=== PATIENT | male | born 2005 | race Caucasian/White ===

== ENCOUNTER 2025-01-05 22:36 | Inpatient (IN) | payer MEDICAID ==
[~2025-01-05] VITALS: Ht 170.2 cm; Wt 67.1 kg
[2025-01-05 22:43] VITALS: O2SAT 100
[2025-01-05 23:28] LABS: CLARITY URINE CLEAR (CLEAR); COLOR URINE YELLOW (YELLOW); GLUCOSE URINE NEGATIVE (NEGATIVE); KETONES URINE TRACE (NEGATIVE); LEUKOCYTE ESTERASE URINE NEGATIVE (NEGATIVE); NITRITE URINE NEGATIVE (NEGATIVE); OCCULT BLOOD URINE NEGATIVE (NEGATIVE); PH URINE 6.0 (4.5-8.0); PROTEIN URINE NEGATIVE (NEGATIVE); SPECIFIC GRAVITY URINE 1.026 (1.005-1.030); UROBILINOGEN URINE 1.0 E.U./dL (0.2-1.0)
[2025-01-05 23:38] LABS: HEMATOCRIT. 37.5 % (42.0-52.0); HEMOGLOBIN. 13.1 g/dL (14.0-18.0); MEAN PLATELET VOLUME 7.5 fl (7.4-10.4); PLATELET 381 x1000/uL (130-400); RED BLOOD CELL COUNT 4.26 mill/uL (4.7-6.1); RED CELL DISTRIBUTION WIDTH 13.6 % (11.6-14.6)
[2025-01-05 23:54] LABS: CREATININE 0.9 mg/dL (0.6-1.3); UREA NITROGEN BLOOD 20 mg/dL (9-23)
[2025-01-05 23:55] LABS: ETHANOL BLOOD < 10 mg/dL (<10)
[2025-01-05 23:56] LABS: ASPARTATE AMINOTRANSFERASE 107 IU/L (<34)
[2025-01-05 23:57] LABS: BILIRUBIN DIRECT 0.1 mg/dL (<=3.0); BILIRUBIN TOTAL 0.2 mg/dL (0.1-1.0); PROTEIN TOTAL 6.5 g/dL (6.0-8.3)
[2025-01-06] LABS: *AMPHETAMINES SCREEN URINE NEGATIVE (NEGATIVE)
[2025-01-06 00:01] LABS: *BARBITURATES SCREEN URINE NEGATIVE (NEGATIVE); *BENZODIAZEPINES SCREEN URINE NEGATIVE (NEGATIVE); *COCAINE SCREEN URINE NEGATIVE (NEGATIVE); CANNABINOID URINE SCREEN PRESUMPTIVE POSITIVE (NEGATIVE); ECSTASY MDMA SCREEN URINE NEGATIVE (NEGATIVE); METHADONE URINE SCREEN NEGATIVE (NEGATIVE); OPIATES URINE SCREEN NEGATIVE (NEGATIVE); PHENCYCLIDINE URINE SCREEN NEGATIVE (NEGATIVE)
[2025-01-06] MEDS: POTASSIUM CHLORIDE 20MEQ/PACKET PO NR ×2 (00:23→06:14)
[2025-01-06 01:36] LABS: ATYPICAL LYMPHOCYTES 1; BAND% 3.0 % (1.0-6.0); EOSINOPHILS % MANUAL 2.0 % (0.0-5.0); LYMPHOCYTES % MANUAL 49.0 % (20.0-50.0); METAMYELOCYTES % 1.0 % (0-0); MONOCYTES % MANUAL 9.0 % (2.0-8.0); NEUTROPHILS % MANUAL 35.0 % (45.0-75.0); PLATELET ESTIMATE NORMAL
[2025-01-06] MEDS: DIPHENHYDRAMINE 50MG/ML VIAL IM ONE (01:47)
[2025-01-06] MEDS: HALOPERIDOL LACTATE 5MG/ML VIAL IM ONE (01:47)
[2025-01-06] MEDS: LORAZEPAM 2MG/ML UD SYRINGE IM NR (01:48)
[2025-01-06 05:32] LABS: CREATININE 0.9 mg/dL (0.6-1.3); UREA NITROGEN BLOOD 20 mg/dL (9-23)
[2025-01-06] MEDS: OLANZAPINE 5MG TABLET ODT PO SCH (09:00)
[2025-01-06] MEDS: LORAZEPAM 1MG TABLET PO ONE (18:00)
[2025-01-07] MEDS: LORAZEPAM 1MG TABLET PO ONE (04:14)
[2025-01-07] MEDS: SODIUM CHLORIDE 0.9% 1,000 ML IV ONE (12:44)
[2025-01-07] MEDS: METOPROLOL SUCCINATE 50MG ER TABLET PO STA (15:40)
[2025-01-07] MEDS: LORAZEPAM 1MG TABLET PO STA (17:45)
[2025-01-07 23:25] VITALS: BP 126/78; PULSE 117; RESP 18; TEMP 35.8; O2SAT 99
[2025-01-08] VITALS (7 sets, daily range): BP systolic 106–130; BP diastolic 52–78; PULSE 103–130; RESP 18–20; TEMP 35.8064–36.7; O2SAT 98–100
[2025-01-08] MEDS ORDERED: IOHEXOL-300 50 ML BOTTLE IV ONE (00:46)
[2025-01-08] MEDS ORDERED: CLONIDINE 0.1MG TABLET PO PRN (02:15)
[2025-01-08] MEDS ORDERED: MAGNESIUM/ALUMINUM HYDROXIDE/SIMETHICONE 30ML UDC PO PRN (02:15)
[2025-01-08] MEDS ORDERED: GUAIFENESIN 200MG/10ML SUGAR FREE UDC PO PRN (02:15)
[2025-01-08] MEDS ORDERED: DOCUSATE SODIUM 100MG CAPSULE PO PRN (02:15)
[2025-01-08] MEDS ORDERED: LORAZEPAM 0.5MG TABLET PO PRN (02:15)
[2025-01-08] MEDS ORDERED: IPRATROPIUM/ALBUTEROL 0.5-3(2.5)MG/3ML NEB HHN PRN (02:15)
[2025-01-08] MEDS ORDERED: DEXTROSE 50% WATER 50ML SYRINGE IV PRN (02:15)
[2025-01-08] MEDS ORDERED: ONDANSETRON HCL 4MG/2ML INJ IV PRN (02:15)
[2025-01-08] MEDS: POTASSIUM CHLORIDE 20MEQ TABLET SR PO NR (04:11)
[2025-01-08] MEDS: ACETAMINOPHEN 325MG TABLET PO PRN (04:12)
[2025-01-08] MEDS: LACTATED RINGERS 1,000 ML IV ONE (04:14)
[2025-01-08 06:01] LABS: TRIGLYCERIDE 47 mg/dL (0-150); UREA NITROGEN BLOOD 10 mg/dL (9-23)
[2025-01-08 06:02] LABS: LDL CHOLESTEROL 53 mg/dL (5-100)
[2025-01-08 06:04] LABS: TROPONIN I HIGH SENSITIVITY < 4 ng/L (3.0-53)
[2025-01-08 06:14] LABS: CREATININE 0.5 mg/dL (0.6-1.3)
[2025-01-08 06:34] LABS: HEMATOCRIT. 33.4 % (42.0-52.0); HEMOGLOBIN. 11.5 g/dL (14.0-18.0); MEAN PLATELET VOLUME 7.4 fl (7.4-10.4); PLATELET 328 x1000/uL (130-400); RED BLOOD CELL COUNT 3.72 mill/uL (4.7-6.1); RED CELL DISTRIBUTION WIDTH 14.2 % (11.6-14.6)
[2025-01-08] MEDS: FOLIC ACID 1MG TABLET PO SCH (08:13)
[2025-01-08] MEDS: THIAMINE HCL 100MG TABLET PO SCH (08:13)
[2025-01-08] MEDS: MAGNESIUM 2 G PREMIX 50 ML IV SCH (11:14)
[2025-01-08] MEDS ORDERED: IOHEXOL-350 100 ML BOTTLE ONE (15:36)
[2025-01-08 16:35] LABS: EOSINOPHILS % MANUAL 4.0 % (0.0-5.0); LYMPHOCYTES % MANUAL 44.0 % (20.0-50.0); METAMYELOCYTES % 2.0 % (0-0); MONOCYTES % MANUAL 9.0 % (2.0-8.0); MYELOCYTES % 2.0 % (0-0); NEUTROPHILS % MANUAL 39.0 % (45.0-75.0); PLATELET ESTIMATE NORMAL
[2025-01-08 16:55] LABS: TROPONIN I HIGH SENSITIVITY < 4 ng/L (3.0-53)
[2025-01-08] MEDS: FAMOTIDINE 20MG TABLET PO SCH (21:44)
[2025-01-08] MEDS: TRAZODONE HCL 50MG TABLET PO SCH (21:44)
[2025-01-09] VITALS: BP 96/63; PULSE 106; RESP 20; TEMP 36.7; O2SAT 98
[2025-01-09 04:00] VITALS: BP 125/75; PULSE 111; RESP 20; TEMP 36.8; O2SAT 99
[2025-01-09 08:00] VITALS: BP 134/81; PULSE 117; RESP 20; TEMP 36.8; O2SAT 98
[2025-01-09 09:16] LABS: CREATININE 0.5 mg/dL (0.6-1.3); UREA NITROGEN BLOOD 6 mg/dL (9-23)
[2025-01-09 09:17] LABS: T4 FREE 1.24 ng/dL (0.89-1.76)
[2025-01-09 12:00] VITALS: BP 97/64; PULSE 127; RESP 20; TEMP 36.8; O2SAT 100
[2025-01-09] MEDS: LORAZEPAM 0.5MG TABLET PO PRN (13:07)
[2025-01-09 16:00] VITALS: BP 110/58; PULSE 115; RESP 20; TEMP 36.8; O2SAT 0
[2025-01-09 20:00] VITALS: BP 121/69; PULSE 112; RESP 18; TEMP 36.2; O2SAT 99
[2025-01-09] MEDS: OLANZAPINE 5MG TABLET ODT PO SCH (20:19)
[2025-01-10] VITALS (7 sets, daily range): BP systolic 110–129; BP diastolic 59–72; PULSE 110–135; RESP 16–18; TEMP 36.1–36.7; O2SAT 98–100
[2025-01-10] MEDS: PROPRANOLOL HCL 10MG TABLET PO NR (10:38)
[2025-01-10] MEDS: METOPROLOL TARTRATE 5MG/5ML VIAL IV NR (12:37)
[2025-01-10] MEDS: METOPROLOL SUCCINATE 25MG ER TABLET PO SCH (14:07)
[2025-01-11] VITALS (7 sets, daily range): BP systolic 99–123; BP diastolic 42–71; PULSE 100–128; RESP 17–19; TEMP 36.6–37.7; O2SAT 97–100
[2025-01-11] MEDS: METOPROLOL SUCCINATE 25MG ER TABLET PO SCH (12:46)
[2025-01-11 17:43] LABS: BASOPHILS % 0.1 % (0.0-2.0); EOSINOPHILS % 1.4 % (0.0-5.0); HEMATOCRIT. 32.8 % (42.0-52.0); HEMOGLOBIN. 10.7 g/dL (14.0-18.0); LYMPHOCYTES % 12.3 % (20.0-50.0); MEAN PLATELET VOLUME 7.6 fl (7.4-10.4); MONOCYTES % 7.7 % (2.0-8.0); NEUTROPHILS % 78.5 % (40.0-76.0); PLATELET 327 x1000/uL (130-400); RED BLOOD CELL COUNT 3.52 mill/uL (4.7-6.1); RED CELL DISTRIBUTION WIDTH 15.3 % (11.6-14.6)
[2025-01-11 17:53] LABS: CREATININE 0.5 mg/dL (0.6-1.3)
[2025-01-11 17:54] LABS: UREA NITROGEN BLOOD 7 mg/dL (9-23)
[2025-01-11 17:58] LABS: VITAMIN B12 SERUM 390 pg/mL (211-911)
== END 2025-01-11 20:35 | disposition short-term general hospital (02) | DRG 425 ==
LOC: ER 22:36 → 8WST 01-07 20:35 → EDBEDREQTM 01-07 20:39 → EDBEDREQ 01-07 20:39 → ENRESERV 01-07 22:42
PROVIDERS: ADMIT Internal Medicine; ATTEND Internal Medicine
PROC: GZ56ZZZ Individual Psychotherapy, Supportive (ICD-10-PCS; principal; 2025-01-08)
DX: E87.6 Hypokalemia (principal); F20.9 Schizophrenia, unspecified; F32.A Depression, unspecified; F41.9 Anxiety disorder, unspecified; Z20.822 Contact with and (suspected) exposure to COVID-19
CPT/HCPCS: 36415; 71275; 80048; 80061; 80076; 80305; 80307; 80320; 80329; 81003; 82550; 82607; 83540; 83550; 83735; 84132; 84439; 84443; 84481; 84484; 85025; 85044; 87426; 93005; 93306; 96372; 99285; A4606; A6449; J1200; J1630; J2060; J3475; J3490; J7030; Q9967; G0480